=== PATIENT | female | born 1980 | race Caucasian/White ===

== ENCOUNTER 2017-08-31 08:35 | Outpatient (CLI) | payer BC ==
--- NOTE | 2017-08-31 09:09 | RAD ---
LUMBAR SPINE SERIES 3 VIEWS: HISTORY: Low back pain radiating down right leg. History of surgery done 14 years ago. FINDINGS: Lateral neutral, flexion, and extension views were done for this examination. Vertebral bodies are n ormal in height. There is minimal disk narrowing along the course of the spine. There is limited mo tion in either flexion or extension. I do not see any signs of abnormal motion. IMPRESSION: Minimal arthritic changes of the spine. POS: [facility]
--- NOTE | 2017-08-31 10:21 | MRI ---
MRI LUMBAR SPINE WITH AND WITHOUT CONTRAST: HISTORY: M54.62, lumbar radiculopathy. COMPARISON: Lumbar spine radiographs same day. FINDINGS: There is normal appearance to the kidneys. No hydronephrosis. No retroperitoneal adenopathy. No aneurysmal dilatation to the aorta. Background marrow signal of the lumbar spine is normal. Mild straightening of the lumbar spine. Levels are as follows: T12-L1: Normal disk. No neural foraminal or spinal canal narrowing. L1-2: Normal disk. No neural foraminal or spinal canal narrowing. L2-3: Normal disk. No neural foraminal or spinal canal narrowing. L3-4: Mild disk desiccation. There is low-grade broad-based posterior circumferential disk bulge wi th small posterior osseous spurs. There is moderate left and right neural foraminal narrowing. Mild facet arthrosis. Abutment of the exiting right side nerve root. L4-5: Mild disk desiccation. There is a broad-based posterior disk bulge extending from the central to the bilateral paracentral moderate recess and subforaminal zones. There is moderate facet arthro sis at this level. There is moderate bilateral neural foraminal narrowing with abutment of the exiti ng and traversing nerve roots bilaterally. L5-S1: Mild disk desiccation. Small central annular fissure. No neural foraminal or spinal canal n arrowing. IMPRESSION: Moderate spondylosis as described above worse at L3-4 and L4-5. POS: [facility]
== END 2017-08-31 08:36 | disposition home or self-care (01) ==
LOC: TBSIIMAG 08:35
PROVIDERS: ATTEND Anesthesiology Pain Medicine
DX: M47.26 Other spondylosis with radiculopathy, lumbar region (principal); M96.1 Postlaminectomy syndrome, not elsewhere classified; M46.96 Unspecified inflammatory spondylopathy, lumbar region
CPT/HCPCS: 72100; 72158

== ENCOUNTER 2020-05-07 08:00 | Inpatient (IN) | payer OTHER ==
[2020-05-18 12:49] VITALS: BMI 45.6
[2020-05-19] MEDS ORDERED: Heparin 5,000 UNITS/ML VIAL ONE (10:02)
[2020-05-19] MEDS ORDERED: Rocuronium Bromide 10 MG/ML (10ML VIAL) ONE (10:10)
[2020-05-19] MEDS ORDERED: Metoclopramide HCl 10 MG/2 ML VIAL ONE (10:10)
[2020-05-19] MEDS ORDERED: Lidocaine 1% PF 5 ML VIAL ONE (10:10)
[2020-05-19] MEDS ORDERED: PHENYLEPHRINE-NS 100 MCG/ML 10 ML SYRINGE ONE (10:10)
[2020-05-19] MEDS ORDERED: Ketorolac Tromethamine 30 MG/ML VIAL ONE (10:10)
[2020-05-19] MEDS ORDERED: PROPOFOL 200 MG/20 ML VIAL ONE (10:10)
[2020-05-19] MEDS ORDERED: Ondansetron PF 4 MG/2 ML Vial ONE (10:10)
[2020-05-19] MEDS ORDERED: Dexamethasone 20 MG/5 ML VIAL ONE (10:10)
[2020-05-19] MEDS ORDERED: Scopolamine 1.5 mg/72 hour Patch ONE (10:21)
[2020-05-19] MEDS ORDERED: XYLOCAINE 2%-EPI 1:100,000 20 ML VIAL ONE (11:20)
[2020-05-19] MEDS ORDERED: Bupivacaine 0.25% HCL 30 ML VIAL ONE (11:20)
[2020-05-19] MEDS ORDERED: Famotidine/PF 20 mg/2ml Vial ONE (11:29)
[2020-05-19] MEDS ORDERED: SUGAMMADEX SODIUM 200 MG/2 ML VIAL ONE (11:29)
[2020-05-19] MEDS ORDERED: Fentanyl 100 MCG/2 ML VIAL ONE ×2 (11:29→13:15)
--- NOTE | 2020-05-19 12:58 | OP ---
DATE OF PROCEDURE: 05/19/2020 PREOPERATIVE DIAGNOSIS: Morbid obesity with body mass index of 46. POSTOPERATIVE DIAGNOSES: Morbid obesity with body mass index of 46 plus paraesophageal hiatal hernia. PROCEDURES PERFORMED: 1. Laparoscopic sleeve gastrectomy with [employer]view staplers with Ethicon staple line reinforcements and 38-English bougie. 2. Paraesophageal hiatal hernia repair without fundoplication. ANESTHESIA: General. ESTIMATED BLOOD LOSS: Minimal. COMPLICATIONS: None. FINDINGS: Normal postoperative EGD. DESCRIPTION OF PROCEDURE: The patient was taken to the operating room and placed supine on the operating room table. After general anesthetic was obtained, the abdomen was prepped and draped in a sterile fashion. Left subcostal 5-mm Optiview trocar placed in usual fashion. High-flow pneumoperitoneum was obtained. Left and right abdominal 12-mm ports as well as right subcostal 5-mm port were placed under direct visualization. A 5-mm incision was made at the xiphoid, and the Willa was used to raise the liver off the GE junction. Short gastrics were taken down distance of 6 cm proximal to the pylorus all the way up to the left alessandra, angle of His. This revealed a hiatal hernia. A circumferential dissection of the esophagus was performed and the mediastinum was entered. The left and right alessandra were completely dissected away from structures anterior and posteriorly. A 38 bougie was brought in with its tip left in the antrum of the stomach. Multiple loads of an Southview stapling device with Ethicon staple line reinforcements were used to form the sleeve. The first was fired up at the distance of 6 cm proximal to the pylorus angled up to the incisura. Multiple loads were then fired up along the bougie. Stomach was completely transected at the angle of His. Stomach was removed from the left abdominal incision. This fascial defect was closed using GraNee needle, Vicryl tie. No bleeding on the staple line. EGD scope was passed through the esophagus, stomach to the level of duodenum without obstruction. There was no stricture at the incisura. One suture was used to approximate the posterior left and right crura posterior to the GE junction and the Ti-KNOT system discloses the hiatal hernia. This was done before the bougie was removed and the EGD was performed. Willa retractors were removed under direct visualization without bleeding. All port sites were infiltrated using local anesthetic and removed under direct visualization without bleeding. Pneumoperitoneum was let down. Vicryl was used to close the fascial defect from the left abdominal incisions. All incisions were irrigated and closed using 4-0 Monocryl and Dermabond. The patient was sent to Recovery in stable condition. All instrument counts, needle counts, and lap counts were correct. Job ID: [id number]
[2020-05-19] MEDS ORDERED: Promethazine HCl 25 MG/ML VIAL ONE (13:02)
[2020-05-19] MEDS ORDERED: Meperidine HCl/PF 25 MG/ML VIAL SLOW IVP PRN (13:03)
[2020-05-19] MEDS ORDERED: Promethazine HCl 25 MG/ML VIAL IM PRN ×3 (13:03→16:12)
[2020-05-19] MEDS ORDERED: Promethazine HCl 25 MG/ML VIAL SLOW IVP PRN (13:03)
[2020-05-19] MEDS ORDERED: Ondansetron HCl/PF 4 MG/2 ML Vial IVP PRN (13:03)
[2020-05-19] MEDS ORDERED: diphenhydrAMINE 25 MG CAP PO PRN (13:15)
[2020-05-19] MEDS ORDERED: Ondansetron PF 4 MG/2 ML Vial IVP PRN ×2 (13:15→16:12)
[2020-05-19] MEDS ORDERED: Zolpidem Tartrate 5 MG TAB PO PRN (13:15)
[2020-05-19] MEDS ORDERED: Naloxone HCl 0.4 mg/ml Vial IV PRN (13:15)
[2020-05-19] MEDS ORDERED: diphenhydrAMINE 50 MG/ML VIAL IM/IV PRN (13:15)
[2020-05-19] MEDS ORDERED: fentaNYL Citrate/PF 2,000 MCG in Sodium Chloride 0.9% 60 ML IV PRN (13:15)
[2020-05-19] MEDS ORDERED: Dextrose 5% in Water 1,000 ML IV PRN (16:12)
[2020-05-19] MEDS ORDERED: Dextrose 50% Abboject 50 ML SYRINGE SLOW IVP PRN (16:12)
[2020-05-19] MEDS ORDERED: diphenhydrAMINE 50 MG/ML VIAL IVP PRN (16:12)
[2020-05-19] MEDS ORDERED: Hydrocodone-Acetamin 15 ML UDCUP PO PRN (16:12)
[2020-05-19] MEDS ORDERED: hydrALAZINE 20 MG/ML VIAL SLOW IVP PRN (16:12)
[2020-05-19] MEDS ORDERED: D5 1/2 NS w/20 mEq KCL 1,000 ML ONE (16:17)
[2020-05-19] MEDS ORDERED: Ketorolac Tromethamine 30 MG/ML VIAL IVP SCH (18:00)
[2020-05-19] MEDS ORDERED: Enoxaparin Sodium 40 MG/0.4 ML SYRINGE SC SCH (21:00)
[2020-05-19] MEDS: D5 1/2 NS w/20 mEq KCL 1,000 ML IV SCH (22:27)
[2020-05-20] MEDS: D5 1/2 NS w/20 mEq KCL 1,000 ML IV SCH ×2 (05:12→08:37)
[2020-05-20] MEDS ORDERED: Levothyroxine Sodium 100 MCG TAB PO SCH (06:00)
[2020-05-20 06:53] LABS: #Lymphocytes 2.2 thou/uL (1.20-3.40); #Monocytes 0.5 thou/uL (0.11-0.59); #Neutrophils 9.7 thou/uL (1.40-6.50); %Basophils 0.1 % (0.0-1.0); %Eosinophils 0.1 % (0.0-10.0); %Lymphocytes 17.8 % (21.0-51.0); %Monocytes 3.8 % (0.0-10.0); %Neutrophils 78.3 % (42.0-75.0); Hemoglobin 11.6 g/dL (12.0-16.0); Mean Corpuscular HGB CONC 33.5 g/dL (32.0-36.0); Mean Corpuscular Hemoglobin 29.5 pg (27.0-31.0); Mean Corpuscular Volume 87.9 fL (78.0-98.0); Mean Platelet Volume 9.5 fL (7.4-10.4); Platelet Count 208 thou/uL (130-400); RBC Distribution Width 12.4 % (11.5-14.5); Red Blood Cell (RBC) Count 3.95 mill/uL (4.20-5.40); White Blood Cell (WBC) Count 12.4 thou/uL (4.8-10.8)
[2020-05-20 07:12] LABS: Anion Gap 10 mmol/L (10-20); BUN (Urea Nitrogen) 9 mg/dL (7.0-18.7); Calc. Creatinine Clearance 209 mL/min (70-130); Calcium 8.6 mg/dL (7.8-10.44); Carbon Dioxide 22 mmol/L (22-29); Chloride 107 mmol/L (98-107); Glucose 128 mg/dL (70-105); Potassium 4.3 mmol/L (3.5-5.1); Sodium 135 mmol/L (136-145)
--- NOTE | 2020-05-20 07:45 | PDOC.GSPN ---
Surgery Progress Note: Subj - Subjective Narrative: Patient is a 39 YO female with an insignificant PMH who is s/p sleeve gastrectomy. Patient reports she is feeling very well, and only has had slight pain at the incision site which is well managed with self-dosed Fentanyl. She had an episode of slight nausea last night, which also resolved with a single dose of Zofran. She has been ambulating around the galdamez so frequently that the nurses have told her, "You again?" She endorses having an appetite and is tolerating her liquid diet well. The patient has not had a BM or passed gas per rectum, but reports passing gas per mouth. Overall, she feels ready to go home. Denies fevers, chills, DAVIS, SOB, chest pain, or peripheral leg swelling. Surgery Progress Note: Obj - Vital signs Vital signs: Vital Signs - Most Recent Temp Pulse Resp BP Pulse Ox 98.1 F 51 L 18 114/69 96 05/20/20 03:49 05/20/20 03:49 05/20/20 03:49 05/20/20 03:49 05/20/20 03:49 - Physical Exam General: no distress, well nourished ENT: normal mucosa Cardiovascular: regular rate and rhythm (Crescendo-Decrescendo systolic murmur detected with radiation to the carotids) Respiratory: clear to auscultation, normal expansion, normal respiratory effort, other (IC up to 2000) Abdomen: soft, non tender, nondistended Hernia: none Integumentary: no abnormal pigmentation Psychiatric: memory intact, oriented to time, oriented to person, oriented to place Wound: dressing clean,dry,intact, healing well Surgery Progress Note: Results - Labs Result Diagrams: 05/20/20 06:25 05/20/20 06:25 Lab results: Laboratory Results - last 12 hr 05/20/20 05/20/20 06:25 06:25 WBC 12.4 H RBC 3.95 L Hgb 11.6 L Hct 34.7 L MCV 87.9 MCH 29.5 MCHC 33.5 RDW 12.4 Plt Count 208 MPV 9.5 Neutrophils % 78.3 H Lymphocytes % 17.8 L Monocytes % 3.8 Eosinophils % 0.1 Basophils % 0.1 Neutrophils # 9.7 H Lymphocytes # 2.2 Monocytes # 0.5 Eosinophils # 0.0 Basophils # 0.0 Sodium 135 L Potassium 4.3 Chloride 107 Carbon Dioxide 22 Anion Gap 10 BUN 9 Creatinine 0.76 Estimated GFR (MDRD) 84 Glucose 128 H Calcium 8.6 Surgery Progress Note: A/P - Plan Plan: Patient is s/p sleeve gastrectomy secondary to BMI >40. Patient appears well and is ready to go home. Patient is ambulating and tolerating an oral liquid diet. Vital signs normal and stable. Will D/C this am and F/U in clinic. 1. Leukocytosis- secondary to intraoperative cortisol release -WBC 12.4 with 78% neutrophils 2. Normocytic Anemia- secondary to intraoperative blood loss -H/H 11.6/34.7
[2020-05-20] MEDS ORDERED: MOMETASONE FUROATE PUMP INH SCH (09:00)
[2020-05-20] MEDS ORDERED: Fluticasone Propionate Nasal Spray 16 gm Bottle NASAL SCH (09:00)
[2020-05-20] MEDS ORDERED: Pantoprazole 40 MG VIAL IVP SCH (09:00)
--- NOTE | 2020-05-20 10:44 | DIS ---
DATE OF ADMISSION: 05/19/2020 DATE OF DISCHARGE: 05/20/2020 ADMITTING DIAGNOSIS: Morbid obesity. DISCHARGE DIAGNOSIS: Morbid obesity. PROCEDURE: Laparoscopic sleeve by Dr. Rosa without complication. CONDITION ON DISCHARGE: Improved. STAFF: Dr. Rosa. HOSPITAL COURSE: On postop day 1, the patient is doing well. She is tolerating the liquids. She is ambulatory. She is being discharged home. Prescriptions for Lortab micki Zofran already sent to her pharmacy. She will follow up with me in 2 weeks. Job ID: [id number]
[2020-05-20 11:21] VITALS: BP 113/74; TEMP 98.3
--- NOTE | 2020-05-22 13:07 | PQF ---
CLINICAL DOCUMENTATION CLARIFICATION FORM: Dear : Luis Felipe Rosa MD Date / Time: 05/22/2020 Please exercise your independent, professional judgment in responding to the clarification form. Clinical indicators are provided on the bottom of this form for your review Please check appropriate box(es): [ ] Acute blood loss anemia [ ] Post-op anemia related to acute blood loss [ ] Anemia: [ ] Aplastic [ ] Nutritional [ ] Drug induced (specify) [ ] Hemolytic [ ] Hereditary [ ] Acquired [ ] Autoimmune [ ] Non-autoimmune [ ] Enzyme disorder [ ] Chronic Anemia: [ ] Blood loss [ ] Hemolytic [ ] Simple [ ] Due to Vitamin B12 Deficiency [ ] Other [ ] Anemia of Chronic Disease (please specify) [ ] Other diagnosis (Please specify if any) [ ] Unable to determine In addition, please specify: Present on Admission (POA): [ ] Yes [ ] No [ ] Unable to determine Physician Signature: Date/Time: For continuity of documentation, please document condition throughout progress notes and discharge summary. Thank You. To be completed by CDI/Coding staff for physician review: Present Clinical Indicators - Signs / Symptoms / Labs Results and Location in Medical Record [x] Normocytic anemia-secondary to intraoperative blood loss Progress notes on 05/20 [ ] Hypotension [x] Low hemoglobin 11.L and hematocrit 34.7 L Laboratory on 05/20 [x] Estimated blood loss minimal OP note on 05/19 [ ] Melena/Hematochezia [x] Tachycardia 51, 59 beats/min Vitals on 05/20 Present Risk Factors Results and Location in Medical Record [x] Surgery Sleeve gastrectomy OP note on 05/19 [ ] Fracture of long bones [ ] Neoplasm [ ] Malnutrition Present Treatments Results and Location in Medical Record [ ] Transfusion of blood products [x] Ferrous supplement 325 mg PO Discharge to home on 05/20 CDS/Referral Manager Signature: AAS Phone #: Date/Time: 05/22/2020 This is a permanent part of the Medical Record [facility]
== END 2020-05-20 12:20 | disposition home or self-care (01) | DRG 621 ==
LOC: EDSTATUS 05-12 08:00 → SURG A 05-19 09:32
PROVIDERS: ADMIT Surgery; ATTEND Surgery
PROC: 0DB64Z3 Excision of Stomach, Percutaneous Endoscopic Approach, Vertical (ICD-10-PCS; principal; 2020-05-19)
PROC: 0BQT4ZZ Repair Diaphragm, Percutaneous Endoscopic Approach (ICD-10-PCS; 2020-05-19)
PROC: 0DJ08ZZ Inspection of Upper Intestinal Tract, Via Natural or Artificial Opening Endoscopic (ICD-10-PCS; 2020-05-19)
DX: E66.01 Morbid (severe) obesity due to excess calories (principal); K44.9 Diaphragmatic hernia without obstruction or gangrene; D72.829 Elevated white blood cell count, unspecified; D50.0 Iron deficiency anemia secondary to blood loss (chronic); Z68.42 Body mass index [BMI] 45.0-49.9, adult; Z88.0 Allergy status to penicillin; Z91.013 Allergy to seafood; Z91.09 Other allergy status, other than to drugs and biological substances
CPT/HCPCS: 36415; 80048; 85025; 88307; 94760; J0690; J1100; J1644; J1650; J1885; J2405; J2550; J2704; J2765; J3010; J3480; J3490; S0020; S0028

== ENCOUNTER 2021-10-12 10:43 | Outpatient (CLI) | payer OTHER | END 2021-10-12 10:44 | disposition home or self-care (01) | LOC: BICRAD 10:43 | PROVIDERS: ATTEND Internal Medicine Rheumatology | DX: M05.79 Rheumatoid arthritis with rheumatoid factor of multiple sites without organ or systems involvement (principal); H16.8 Other keratitis; R53.83 Other fatigue; M19.071 Primary osteoarthritis, right ankle and foot; M19.031 Primary osteoarthritis, right wrist; Z79.899 Other long term (current) drug therapy | CPT/HCPCS: 71046 ==